=== PATIENT | female | born 1945 | race Two or more races ===

== ENCOUNTER 2021-10-09 06:14 | Inpatient (IN) | payer OTHER, MEDICAID ==
[2021-10-09] VITALS (14 sets, daily range): BP systolic 98–126; BP diastolic 52–73
[~2021-10-09] VITALS: Ht 154.9 cm; Wt 93.0 kg
[~2021-10-09 06:14] MED LIST: AML5T PO; ASPI1TAB20 PO; ATOR20TA50 PO; LOSA-39 PO; TRAM50TA2 PO
[2021-10-09] MEDS ORDERED: ceFAZolin 1GM/50ML 100 ML IV ONE (06:44)
[2021-10-09] MEDS ORDERED: MORPHINE SULF PF 5 MG/10 ML VIAL ONE (06:49)
[2021-10-09] MEDS ORDERED: TRANEXAMIC ACID 20 ML ONE (06:50)
[2021-10-09] MEDS ORDERED: VANCOMYCIN HCL 1000 MG VL ONE (06:52)
[2021-10-09] MEDS ORDERED: KETOROLAC TROMETH 60MG/2ML VIAL ONE (06:52)
[2021-10-09] MEDS ORDERED: BUPIVACAINE W/ EPINEPH 0.5% INJ 50ML MDV IJ ONE (06:53)
[2021-10-09] MEDS ORDERED: ROPIVACAINE 0.5% (5MG/ML) 20ML AMPULE IJ ONE (06:55)
[2021-10-09] MEDS ORDERED: FAMOTIDINE (10MG/ML) 2ML VL IV ONE (07:07)
[2021-10-09] MEDS ORDERED: fentaNYL CITRATE 100 MCG/2 ML VL ONE (07:12)
[2021-10-09] MEDS ORDERED: MIDAZOLAM HCL 2MG/2ML 2ml VIAL (1mg/ml) ONE (07:12)
[2021-10-09] MEDS ORDERED: BUPIVACAINE/DEXTROSE MPF 0.75% 2 ML AMP IT ONE (07:13)
[2021-10-09] MEDS ORDERED: PHENYLEPHRINE HCL 10 MG/ML VL ONE (07:13)
[2021-10-09] MEDS ORDERED: GLYCOPYRROLATE 0.2 MG/ML 1ML VIAL ONE (07:13)
[2021-10-09] MEDS ORDERED: ePHEDrine SULFATE 50 MG/ML AMP ONE (07:13)
[2021-10-09] MEDS ORDERED: ONDANSETRON HCL 4 MG/2 ML VIAL ONE (07:13)
[2021-10-09] MEDS ORDERED: PROPOFOL 10 MG/ML 20 ML IV ONE (07:13)
[2021-10-09] MEDS ORDERED: diphenhdrAMINE HCL 50 MG/1 ML VL IV PRN (09:45)
[2021-10-09] MEDS ORDERED: DexAMETHasone SOD PHOS 10MG/1ML VIAL INJ IV PRN (09:45)
[2021-10-09] MEDS ORDERED: ONDANSETRON HCL 4 MG/2 ML VIAL IV PRN (09:45)
[2021-10-09] MEDS ORDERED: KETOROLAC TROMETH 30 MG/ML 1ML VIAL IV PRN (09:45)
[2021-10-09] MEDS ORDERED: KETOROLAC TROMETH 30 MG/ML 1ML VIAL IV ONE (09:45)
[2021-10-09] MEDS ORDERED: NALOXONE HCL 0.4 MG/ML VIAL IV PRN (09:45)
[2021-10-09] MEDS: ATORVASTATIN 20 MG TAB PO SCH (10:00)
[2021-10-09] MEDS ORDERED: oxyCODONE HCL 5MG TAB PO PRN (10:00)
[2021-10-09] MEDS: D5W/LACTATED RINGERS 1,000 ML IV SCH ×2 (10:00→20:44)
[2021-10-09] MEDS: amLODIPine BESYLATE 5 MG TAB PO SCH (10:00)
[2021-10-09] MEDS: LOSARTAN POTASSIUM 50 MG TAB PO SCH (10:00)
[2021-10-09] MEDS: PREGABALIN 25 MG CAP PO SCH ×2 (10:00→21:59)
[2021-10-09] MEDS ORDERED: KETOROLAC TROMETH 30 MG/ML 1ML VIAL ONE (10:23)
[2021-10-09] MEDS: ACETAMINOPHEN 325 MG TAB PO SCH ×3 (12:00→23:53)
[2021-10-09] MEDS: KETOROLAC TROMETH 30 MG/ML 1ML VIAL IV SCH ×3 (12:00→23:52)
[2021-10-09] MEDS: ceFAZolin 2 GM in D5W 5% 100 ML IV SCH ×2 (16:38→21:59)
[2021-10-09] MEDS: ONDANSETRON HCL 4 MG/2 ML VIAL IV PRN (22:00)
[2021-10-10] VITALS (20 sets, daily range): BP systolic 96–127; BP diastolic 49–92
[2021-10-10] MEDS: KETOROLAC TROMETH 30 MG/ML 1ML VIAL IV SCH ×3 (05:27→18:58)
[2021-10-10] MEDS: ACETAMINOPHEN 325 MG TAB PO SCH ×3 (05:27→18:50)
[2021-10-10] MEDS: ONDANSETRON HCL 4 MG/2 ML VIAL IV PRN ×2 (05:28→11:00)
[2021-10-10] MEDS: D5W/LACTATED RINGERS 1,000 ML IV SCH ×2 (07:00→16:00)
[2021-10-10] MEDS: oxyCODONE HCL 5MG TAB PO PRN (09:05)
[2021-10-10 10:51] LABS: Basophils # (auto) 0 10 ^3/uL (0-0.2); Basophils % (auto) 0.2 % (0.0-2.0); Eosinophils # (auto) 0 10 ^3/uL (0-0.8); Hematocrit 33.9 % (36.0-46.0); Lymphocytes # (auto) 0.7 10 ^3/uL (0.4-5.4); Lymphocytes % (auto) 5.3 % (10.0-50.0); Mean Corpuscular Hemoglobin 30.4 pg (28.0-32.0); Mean Corpuscular Hgb Conc. 32.4 g/dL (32.0-36.0); Monocytes # (auto) 1.1 10 ^3/uL (0-1.3); Monocytes % (auto) 8.6 % (0.0-12.0); Neutrophils # (auto) 10.9 10 ^3/uL (1.6-8.6); Neutrophils % (auto) 85.9 % (37.0-80.0); Red Blood Cells 3.61 10^6/uL (4.0-5.20); Red Cell Distribution Width 13.8 % (11.8-14.3); White Blood Cell 12.7 10^3/uL (4.4-10.8)
[2021-10-10] MEDS: ASPirin 81 mg TAB PO SCH ×2 (11:00→21:23)
[2021-10-10] MEDS: ATORVASTATIN 20 MG TAB PO SCH (11:01)
[2021-10-10] MEDS: LOSARTAN POTASSIUM 50 MG TAB PO SCH (11:01)
[2021-10-10] MEDS: PREGABALIN 25 MG CAP PO SCH ×2 (11:02→21:24)
[2021-10-10] MEDS: amLODIPine BESYLATE 5 MG TAB PO SCH (11:02)
[2021-10-10 11:11] LABS: Potassium 4.6 mmol/L (3.5-5.1)
[2021-10-10 11:22] LABS: BUN/Creatinine Ratio 28.1; Calcium 9.4 mg/dL (8.5-10.1)
[2021-10-11] MEDS: ACETAMINOPHEN 325 MG TAB PO SCH ×3 (01:12→12:00)
[2021-10-11] MEDS: KETOROLAC TROMETH 30 MG/ML 1ML VIAL IV SCH ×3 (01:12→12:00)
[2021-10-11] MEDS: D5W/LACTATED RINGERS 1,000 ML IV SCH ×3 (02:16→13:35)
[2021-10-11] MEDS: oxyCODONE HCL 5MG TAB PO PRN (03:36)
[2021-10-11 08:00] VITALS: BP 137/77
[2021-10-11 08:55] VITALS: BP 136/77
[2021-10-11] MEDS: LOSARTAN POTASSIUM 50 MG TAB PO SCH (09:33)
[2021-10-11] MEDS: amLODIPine BESYLATE 5 MG TAB PO SCH (09:34)
[2021-10-11] MEDS: ATORVASTATIN 20 MG TAB PO SCH (09:34)
[2021-10-11] MEDS: ASPirin 81 mg TAB PO SCH (09:34)
[2021-10-11] MEDS: PREGABALIN 25 MG CAP PO SCH (09:34)
[2021-10-11 13:35] VITALS: BP 128/70
[2021-10-11 13:37] VITALS: BP 119/62
== END 2021-10-11 14:33 | disposition home health service (06) | DRG 470 ==
LOC: SUR 06:14 → TELE 09:52 → TELE-CENTR 14:52
PROVIDERS: ADMIT Orthopaedic Surgery; ATTEND Orthopaedic Surgery
PROC: 0SRD0J9 Replacement of Left Knee Joint with Synthetic Substitute, Cemented, Open Approach (ICD-10-PCS; principal; 2021-10-09 07:36)
DX: M17.12 Unilateral primary osteoarthritis, left knee (principal); Z20.822 Contact with and (suspected) exposure to COVID-19; G89.29 Other chronic pain
CPT/HCPCS: 36415; 73562; 80048; 82962; 85025; 86850; 86900; 86901; 93971; 97110; 97116; 97163; 97530; G0378; J0690; J1885; J2250; J2405; J2704; J3490; J7060